=== PATIENT | female | born 1960 | race Caucasian/White ===

== ENCOUNTER 2016-07-21 01:29 | Emergency (ER) | payer MEDICAID ==
[2013-04-15 01:16] VITALS: BMI 25.0
[~2016-07-21 01:29] MED LIST: ATENOLOL25 MG NG; BAYER CHEWABLE81 MG PO; KLONOPIN1 MG PO; NORCO 10/325 TA1 TA1 PO; PLAVIX75 MG PO
[2016-07-21 02:05] LABS: HEMATOCRIT 39.7 % (36.0-48.0); HEMOGLOBIN 13.5 g/dL (12-16); LYMPHOCYTES 10.1 % (15-50); MCV 91.3 fL (80.0-100.0); MEAN PLATELET VOLUME 11.5 fL (7.4-10.4); NEUTROPHILS 87.1 % (40-80); PLATELET COUNT 142 10x3/uL (130-400); RBC 4.35 10x6/uL (4.00-5.40); RDW 12.4 % (11.5-14.5); WBC 7.2 10x3/uL (4.8-10.8)
[2016-07-21 02:16] LABS: ALBUMIN 4.3 g/dL (3.4-5.0); ANION GAP 14.7 mmol/L (8-16); BILIRUBIN - TOTAL 0.71 mg/dL (0.2-1.3); CALCIUM 9.4 mg/dL (8.5-10.1); CARBON DIOXIDE 26.2 mmol/L (21.0-32.0); CREATININE - SERUM 0.9 mg/dL (0.6-1.3); POTASSIUM - SERUM 3.9 mmol/L (3.5-5.1); PROTEIN - SERUM 7.9 g/dL (6.4-8.2)
== END 2016-07-21 04:58 | disposition home or self-care (01) ==
LOC: D.ER 01:29
PROVIDERS: Emergency Medicine
DX: K52.9 Noninfective gastroenteritis and colitis, unspecified (principal); F41.9 Anxiety disorder, unspecified; E78.5 Hyperlipidemia, unspecified

== ENCOUNTER 2016-11-14 14:42 | Emergency (ER) | payer MEDICAID ==
[2013-04-15 01:16] VITALS: BMI 25.0
== END 2016-11-14 15:34 | disposition home or self-care (01) ==
LOC: D.ER 14:42
DX: J01.90 Acute sinusitis, unspecified (principal); F41.9 Anxiety disorder, unspecified

== ENCOUNTER 2017-10-26 12:11 | Emergency (ER) | payer MEDICAID ==
[~2017-10-26] VITALS: Ht 165.1 cm; Wt 70.5 kg
[2017-10-26 12:30] VITALS: Ht 165.1 cm; Wt 70.5 kg
[2017-10-26] MEDS ORDERED: PROTONIX40 MG PO (12:33)
[2017-10-26] MEDS ORDERED: LIPITOR80 MG PO (12:34)
[2017-10-26] MEDS ORDERED: ENDOCET 10-3251 TAB (12:34)
[2017-10-26] MEDS ORDERED: LOPRESSOR25 MG PO (12:34)
[2017-10-26] MEDS ORDERED: CLARITIN 10 MG10 MG PO (12:34)
[2017-10-26 13:01] LABS: BASOPHILS 1.2 % (0-2); EOSINOPHILS 0 % (0-7); HEMATOCRIT 41.6 % (36.0-48.0); HEMOGLOBIN 14.2 g/dL (12-16); IMMATURE GRANULOCYTES 0.3 % (0-5); LYMPHOCYTES 17.9 % (15-50); MCH 32.1 pg (26.0-34.0); MCHC 34.1 g/dL (31.0-37.0); MCV 93.9 fL (80.0-100.0); MEAN PLATELET VOLUME 11.8 fL (7.4-10.4); MONOCYTES 10.4 % (2-11); NEUTROPHILS 70.2 % (40-80); RBC 4.43 10x6/uL (4.00-5.40); RDW 12.4 % (11.5-14.5); WBC 3.4 10x3/uL (4.8-10.8)
[2017-10-26 13:12] LABS: PLATELET COUNT 57 10x3/uL (130-400)
[2017-10-26 13:18] LABS: ALBUMIN 3.4 g/dL (3.4-5.0); ANION GAP 13.8 mmol/L (8-16); CARBON DIOXIDE 24.6 mmol/L (21.0-32.0); CREATININE - SERUM 0.9 mg/dL (0.6-1.3); POTASSIUM - SERUM 3.4 mmol/L (3.5-5.1); PROTEIN - SERUM 7.4 g/dL (6.4-8.2)
[2017-10-26 14:40] LABS: PLATELET ESTIMATE DECREASED
[2017-10-26] MEDS ORDERED: TORADOL10 MG PO (15:42)
[2017-10-26 16:11] LABS: APPEARANCE CLEAR (CLEAR); BILIRUBIN NEGATIVE (NEGATIVE); COLOR YELLOW (YELLOW); GLUCOSE NEGATIVE (NEGATIVE); KETONE NEGATIVE (NEGATIVE); NITRITE NEGATIVE (NEGATIVE); PROTEIN NEGATIVE (NEGATIVE); UROBILINOGEN NORMAL (NORMAL)
[2017-10-26 16:15] LABS: BACTERIA FEW /hpf (NONE SEEN); EPITHELIAL CELLS OCC /hpf (0-5); WHITE CELLS - URINE 0-5 /hpf (0-5)
[2017-10-26] MEDS ORDERED: VENTOLIN HFA18 GM INH (17:15)
[2017-10-26] MEDS ORDERED: TYLENOL W/CODEI1 TAB PO (17:15)
[2017-10-26] MEDS ORDERED: VIBRAMYCIN 100100 MG PO (17:15)
[2017-10-26 17:34] VITALS: BP 145/95
[2017-10-30 03:11] LABS: RMSF IGM 0.49 index (0.00-0.89)
[2017-11-03 16:17] LABS: EHRLICHIA CHAFF IGG Negative (Neg:<1:64); EHRLICHIA CHAFF IGM Negative (Neg:<1:20); HGE IGG TITER Negative (Neg:<1:64); HGE IGM TITER Negative (Neg:<1:20)
== END 2017-10-26 17:35 | disposition home or self-care (01) ==
LOC: D.ER 12:11
PROVIDERS: Family Medicine
DX: R51 Headache (principal); M79.1 Myalgia; R05 Cough; S20.469A Insect bite (nonvenomous) of unspecified back wall of thorax, initial encounter; W57.XXXA Bitten or stung by nonvenomous insect and other nonvenomous arthropods, initial encounter; Y93.89 Activity, other specified; Y92.89 Other specified places as the place of occurrence of the external cause; K21.9 Gastro-esophageal reflux disease without esophagitis; R53.83 Other fatigue

== ENCOUNTER 2018-01-01 13:57 | Emergency (ER) | payer MEDICAID ==
[~2018-01-01] VITALS: Ht 165.1 cm; Wt 72.7 kg
[~2018-01-01 13:57] MED LIST changes: +CLARITIN 10 MG10 MG PO; +ENDOCET 10-3251 TAB; +LIPITOR80 MG PO; +LOPRESSOR25 MG PO; +PROTONIX40 MG PO; +TORADOL10 MG PO; +TYLENOL W/CODEI1 TAB PO; +VENTOLIN HFA18 GM INH; +VIBRAMYCIN 100100 MG PO
[2018-01-01 14:22] VITALS: Ht 165.1 cm; Wt 72.7 kg
[2018-01-01] MEDS ORDERED: DOXYCYCLINE HY100 M2 PO (18:00)
[2018-01-01 18:16] VITALS: BP 138/95
== END 2018-01-01 18:18 | disposition home or self-care (01) ==
LOC: D.ER 13:57
DX: J06.9 Acute upper respiratory infection, unspecified (principal); J02.9 Acute pharyngitis, unspecified

== ENCOUNTER 2018-02-19 09:04 | Inpatient (IN) | payer MEDICAID ==
[~2018-02-19] VITALS: Ht 165.1 cm; Wt 72.7 kg
--- NOTE | ~2018-02-19 | MORECARE ---
CASE MANAGEMENT DISCHARGE SUMMARY PATIENT: KARL GARCIA UNIT: [id number] ADM DATE: 02/19/18 AGE: 57 : 56 SEX: F ROOM/BED: D.1211 AUTHOR: DELL HANCOCK PHYSICIAN: REFERRING PHYSICIAN: FELIPA SOL MD DATE OF SERVICE: 02/19/18 Discharge Plan Patient Name: KARL GARCIA Facility: [facility]:[place] : 1960 Planned Disposition: Home Anticipated Discharge Date: 02/21/18 Discharge Date: Expected LOS: 2 Initial Reviewer: [email or web address] Initial Review Date: 02/19/2018 Generated: 02/19/18 3:41 pm DCPIA - Discharge Planning Initial Assessment Updated by [email or web address]: Kristin Ponce on 02/19/18 2:41 pm * Is the patient Alert and Oriented? Yes * How many steps to enter\exit or inside your home? Three * PCP Medicaid Clinic - No provider at the clinic now. * Pharmacy [facility] on [address] * Preadmission Environment Home Alone * ADLs Independent * Equipment Cane * List name and contact numbers for known caregivers / representatives who currently or will assist patient after discharge: Sandrine Ahn [facility] [phone] * Community resources currently utilized None * Additional services required to return to the preadmission environment? No * Can the patient safely return to the preadmission environment? Yes * Has this patient been hospitalized within the prior 30 days at any hospital? No Patient Name: KARL GARCIA Page 45937 at 1442 All edits/amendments must be made on the electronic document DICTATION DATE: 02/19/18 1441 PATIENT ACCESS: GENEVA 02/19/18 1441 RPT#: [id number] DC DATE: STATUS: ADM IN [facility] [address] [place] [address] END OF REPORT
--- NOTE | ~2018-02-19 | MORECARE ---
CASE MANAGEMENT DISCHARGE SUMMARY PATIENT: KARL GARCIA UNIT: [id number] ADM DATE: 02/19/18 AGE: 57 : 56 SEX: F ROOM/BED: D.1211 AUTHOR: SANTIDOC PHYSICIAN: REFERRING PHYSICIAN: FELIPA SOL MD DATE OF SERVICE: 02/22/18 Discharge Plan Patient Name: KARL GARCIA Facility: [facility]:[place] : 1960 Planned Disposition: Home Anticipated Discharge Date: 02/21/18 Discharge Date: 02/21/2018 Expected LOS: 2 Initial Reviewer: [email or web address] Initial Review Date: 02/19/2018 Generated: 02/22/18 10:23 am DCP- Discharge Planning Updated by [email or web address]: Kristin Ponce on 02/19/18 1:[address] Patient Name: KARL GARCIA Admission Status: ER Accout number: [id number] Admission Date: 02-19-2018 : 1960 Admission Diagnosis: Attending: FELIPA SOL Current LOS: 1 Anticipated DC Date: 02-21-2018 Planned Disposition: Home Primary Insurance: MEDICAID [place] Discharge Planning Comments: CM met with patient to complete initial dc planning assessment. CM educated patient on the CM role and verbal consent given by patient to complete assessment. Patient lives at home alone. She reports she is independent in her care at home. At discharge patient plans to return home alone and feels this is a safe discharge. Patient denied known discharge needs at this time. CM will continue to follow and will assist as needed with dc plans/needs. See below for more assessment information. Is the patient Alert and Oriented? Yes * How many steps to enter\exit or inside your home? Three * PCP Medicaid Clinic - No provider at the clinic now. * Pharmacy [facility] on [address] * Preadmission Environment Home Alone * ADLs Independent * Equipment Cane * List name and contact numbers for known caregivers / representatives who currently or will assist patient after discharge: Sandrine Ahn - [place] - [phone] * Community resources currently utilized None * Additional services required to return to the preadmission environment? No * Can the patient safely return to the preadmission environment? Yes * Has this patient been hospitalized within the prior 30 days at any hospital? No Benefits Manager: Kristin Ponce DCPIA - Discharge Planning Initial Assessment Updated by [email or web address]: Kristin Ponce on 02/19/18 2:41 pm * Is the patient Alert and Oriented? Yes * How many steps to enter\exit or inside your home? Three * PCP Medicaid Clinic - No provider at the clinic now. * Pharmacy [facility] on [address] * Preadmission Environment Home Alone * ADLs Independent * Equipment Cane * List name and contact numbers for known caregivers / representatives who currently or will assist patient after discharge: Sandrine Ahn [facility] - [phone] * Community resources currently utilized None * Additional services required to return to the preadmission environment? No * Can the patient safely return to the preadmission environment? Yes * Has this patient been hospitalized within the prior 30 days at any hospital? No Last DP export: 02/19/18 1:51 Patient Name: KARL GRACIA Page 24250 at 0923 All edits/amendments must be made on the electronic document DICTATION DATE: 02/22/18922 SKIVER MACHINE: GENEVA 02/22/18922 RPT#: [id number] DC DATE:02/21/18 STATUS: DIS IN [facility] [address] [place] [address] END OF REPORT
--- NOTE | ~2018-02-19 | MORECARE ---
CASE MANAGEMENT DISCHARGE SUMMARY PATIENT: KARL GARCIA UNIT: [id number] ADM DATE: 02/19/18 AGE: 57 : 56 SEX: F ROOM/BED: D.1211 AUTHOR: SANTI,DOC PHYSICIAN: REFERRING PHYSICIAN: FELIPA SOL MD DATE OF SERVICE: 02/19/18 Discharge Plan Patient Name: KARL GARCIA Facility: [facility]:[place] : 1960 Planned Disposition: Home Anticipated Discharge Date: 02/21/18 Discharge Date: Expected LOS: 2 Initial Reviewer: [email or web address] Initial Review Date: 02/19/2018 Generated: 02/19/18 3:51 pm DCP- Discharge Planning Updated by [email or web address]: Kristin Ponce on 02/19/18 1:[address] Patient Name: KARL GARCIA Admission Status: ER Accout number: [id number] Admission Date: 02-19-2018 : 1960 Admission Diagnosis: Attending: FELIPA SOL Current LOS: 1 Anticipated DC Date: 02-21-2018 Planned Disposition: Home Primary Insurance: MEDICAID [place] Discharge Planning Comments: CM met with patient to complete initial dc planning assessment. CM educated patient on the CM role and verbal consent given by patient to complete assessment. Patient lives at home alone. She reports she is independent in her care at home. At discharge patient plans to return home alone and feels this is a safe discharge. Patient denied known discharge needs at this time. CM will continue to follow and will assist as needed with dc plans/needs. See below for more assessment information. Is the patient Alert and Oriented? Yes * How many steps to enter\exit or inside your home? Three * PCP Medicaid Clinic - No provider at the clinic now. * Pharmacy [facility] on [address] * Preadmission Environment Home Alone * ADLs Independent * Equipment Cane * List name and contact numbers for known caregivers / representatives who currently or will assist patient after discharge: Sandrine Ahn - [employer] - [phone] * Community resources currently utilized None * Additional services required to return to the preadmission environment? No * Can the patient safely return to the preadmission environment? Yes * Has this patient been hospitalized within the prior 30 days at any hospital? No [employer] Offbearer: Kristin Ponce DCPIA - Discharge Planning Initial Assessment Updated by [email or web address]: Kristin Ponce on 02/19/18 2:41 pm * Is the patient Alert and Oriented? Yes * How many steps to enter\exit or inside your home? Three * PCP Medicaid Clinic - No provider at the clinic now. * Pharmacy [facility] on [address] * Preadmission Environment Home Alone * ADLs Independent * Equipment Cane * List name and contact numbers for known caregivers / representatives who currently or will assist patient after discharge: Sandrine Ahn - [employer] - [phone] * Community resources currently utilized None * Additional services required to return to the preadmission environment? No * Can the patient safely return to the preadmission environment? Yes * Has this patient been hospitalized within the prior 30 days at any hospital? No Last DP export: 02/19/18 1:41 Patient Name: KARL GARCIA Page [id number] at 1451 All edits/amendments must be made on the electronic document DICTATION DATE: 02/19/181450 ELECTRONICS ENGINEERING TECHNOLOGIST: GENEVA 02/19/181450 RPT#: [id number] GA DATE: STATUS: ADM IN [facility] [address] [place] [address] END OF REPORT
[~2018-02-19 09:04] MED LIST changes: +DOXYCYCLINE HY100 M2 PO
[2018-02-19] MEDS ORDERED: COREG 3.1253.125 MG PO (09:14)
[2018-02-19] MEDS ORDERED: VALIUM5 MG PO (09:15)
[2018-02-19 09:41] LABS: BASOPHILS 0.4 % (0-2); EOSINOPHILS 1.9 % (0-7); HEMATOCRIT 39.5 % (36.0-48.0); IMMATURE GRANULOCYTES 0.8 % (0-5); MCH 31.6 pg (26.0-34.0); MCHC 32.9 g/dL (31.0-37.0); MCV 95.9 fL (80.0-100.0); MEAN PLATELET VOLUME 12.1 fL (7.4-10.4); MONOCYTES 13.2 % (2-11); NEUTROPHILS 42.7 % (40-80); RBC 4.12 10x6/uL (4.00-5.40); RDW 12.7 % (11.5-14.5); WBC 7.4 10x3/uL (4.8-10.8)
[2018-02-19 09:47] LABS: PLATELET COUNT 155 10x3/uL (130-400)
[2018-02-19 09:50] LABS: ALBUMIN 3.7 g/dL (3.4-5.0); ALKALINE PHOSPHATASE 84 U/L (46-116); ALT (SGPT) 21 U/L (10-68); BILIRUBIN - TOTAL 0.31 mg/dL (0.2-1.3); CALC OSMOLALITY 281 mosm/kg (275-300); CHLORIDE - SERUM 105 mmol/L (98-107); CREATININE - SERUM 0.8 mg/dL (0.6-1.3); POTASSIUM - SERUM 4.3 mmol/L (3.5-5.1); PROTEIN - SERUM 7.1 g/dL (6.4-8.2); SODIUM 140 mmol/L (136-145); UREA NITROGEN 20 mg/dL (7-18); eGFR NON AFRICAN AMERICAN 78 mL/min (90-120)
[2018-02-19 09:53] LABS: APTT 22.1 SECONDS (22.8-39.4); INR 0.88 (0.85-1.17); PROTIME 11.6 SECONDS (11.6-15.0)
[2018-02-19 09:56] LABS: GLUCOSE 91 mg/dL (74-106)
[2018-02-19 09:58] LABS: PRO BNP 46 pg/mL (0-125)
[2018-02-19 10:00] LABS: TROPONIN-I < 0.017 ng/mL (0.000-0.060)
[2018-02-19 14:13] VITALS: BP 195/93; BMI 26.6
[2018-02-19 14:59] VITALS: Ht 165.1 cm; Wt 72.7 kg
[2018-02-19 16:02] LABS: APPEARANCE CLEAR (CLEAR); BILIRUBIN NEGATIVE (NEGATIVE); COLOR STRAW (YELLOW); GLUCOSE 1000 mg/dL (NEGATIVE); KETONE NEGATIVE (NEGATIVE); NITRITE NEGATIVE (NEGATIVE); PROTEIN NEGATIVE (NEGATIVE); UROBILINOGEN NORMAL (NORMAL)
[2018-02-19 20:06] VITALS: BP 151/99
[2018-02-20 00:37] VITALS: BP 140/111
[2018-02-20 04:00] VITALS: BP 170/100
[2018-02-20 06:26] LABS: BASOPHILS 0 % (0-2); EOSINOPHILS 0 % (0-7); HEMATOCRIT 38.9 % (36.0-48.0); HEMOGLOBIN 13.2 g/dL (12-16); IMMATURE GRANULOCYTES 0.6 % (0-5); LYMPHOCYTES 12.5 % (15-50); MCH 31.2 pg (26.0-34.0); MCHC 33.9 g/dL (31.0-37.0); MEAN PLATELET VOLUME 12.4 fL (7.4-10.4); MONOCYTES 1.4 % (2-11); NEUTROPHILS 85.5 % (40-80); PLATELET COUNT 153 10x3/uL (130-400); RBC 4.23 10x6/uL (4.00-5.40); RDW 12.8 % (11.5-14.5)
[2018-02-20 06:31] LABS: WBC 13.3 10x3/uL (4.8-10.8)
[2018-02-20 06:48] LABS: ALBUMIN 3.7 g/dL (3.4-5.0); ALKALINE PHOSPHATASE 80 U/L (46-116); ALT (SGPT) 20 U/L (10-68); BILIRUBIN - TOTAL 0.34 mg/dL (0.2-1.3); CALCIUM 9.1 mg/dL (8.5-10.1); CHLORIDE - SERUM 104 mmol/L (98-107); CREATININE - SERUM 0.7 mg/dL (0.6-1.3); PROTEIN - SERUM 7.5 g/dL (6.4-8.2); SODIUM 140 mmol/L (136-145); UREA NITROGEN 15 mg/dL (7-18); eGFR NON AFRICAN AMERICAN > 90 mL/min (90-120)
[2018-02-20 06:49] LABS: CALC OSMOLALITY 284 mosm/kg (275-300); CARBON DIOXIDE 21.1 mmol/L (21.0-32.0); GLUCOSE 182 mg/dL (74-106); POTASSIUM - SERUM 3.6 mmol/L (3.5-5.1)
[2018-02-20 08:15] VITALS: BP 160/93
[2018-02-20 12:18] VITALS: BP 112/72
[2018-02-20 14:50] VITALS: BP 130/96
[2018-02-20 20:33] VITALS: BP 142/90
[2018-02-21 00:04] VITALS: BP 110/62
[2018-02-21 06:59] VITALS: BP 124/78
[2018-02-21 08:00] VITALS: BP 132/89
[2018-02-21 12:00] VITALS: BP 148/87
[2018-02-21] MEDS ORDERED: FLUTICASONE PRO16 GM NASAL (14:15)
[2018-02-21] MEDS ORDERED: ZITHROMAX500 MG PO (14:15)
[2018-02-25 03:13] LABS: IMMUNOGLOBULIN E 115 IU/mL (0-100)
== END 2018-02-21 15:28 | disposition home or self-care (01) | DRG 190 ==
LOC: D.ER 09:04 → D.EDHOLD 11:38 → D.M3 11:38
PROVIDERS: Family Medicine; Internal Medicine Nephrology; Internal Medicine Pulmonary Disease
DX: J43.9 Emphysema, unspecified (principal); J18.9 Pneumonia, unspecified organism; J98.11 Atelectasis; N17.9 Acute kidney failure, unspecified; J20.9 Acute bronchitis, unspecified; I10 Essential (primary) hypertension; E78.5 Hyperlipidemia, unspecified; I25.10 Atherosclerotic heart disease of native coronary artery without angina pectoris; F41.9 Anxiety disorder, unspecified; K21.9 Gastro-esophageal reflux disease without esophagitis; F10.10 Alcohol abuse, uncomplicated; J30.9 Allergic rhinitis, unspecified; Z95.5 Presence of coronary angioplasty implant and graft; Z87.891 Personal history of nicotine dependence

== ENCOUNTER → 2018-05-19 07:42 | Outpatient (CLI) | payer MEDICAID ==
[2018-02-19 14:59] VITALS: BMI 26.6
[~2018-05-19 07:42] MED LIST changes: +COREG 3.1253.125 MG PO; +FLUTICASONE PRO16 GM NASAL; +VALIUM5 MG PO; +ZITHROMAX500 MG PO
== END | disposition home or self-care (01) ==
LOC: D.RAD 07:42 → D.US 08:30 → D.NM 09:00
DX: R10.11 Right upper quadrant pain (principal); R14.0 Abdominal distension (gaseous); K59.00 Constipation, unspecified

== ENCOUNTER 2018-10-21 12:40 | Emergency (ER) | payer MEDICAID ==
[~2018-10-21] VITALS: Ht 165.1 cm; Wt 72.7 kg
[2018-10-21 12:59] VITALS: BP 110/89; Ht 165.1 cm; Wt 72.7 kg
[2018-10-21] MEDS ORDERED: MIRALAX17 GM PO (13:02)
[2018-10-21 14:56] LABS: BASOPHILS 0.5 % (0-2); EOSINOPHILS 2.7 % (0-7); HEMATOCRIT 36.1 % (36.0-48.0); HEMOGLOBIN 11.7 g/dL (12-16); IMMATURE GRANULOCYTES 0.4 % (0-5); LYMPHOCYTES 43.9 % (15-50); MCHC 32.4 g/dL (31.0-37.0); MCV 92.6 fL (80.0-100.0); MEAN PLATELET VOLUME 12.2 fL (7.4-10.4); MONOCYTES 10.8 % (2-11); NEUTROPHILS 41.7 % (40-80); PLATELET COUNT 158 10x3/uL (130-400); RDW 13.3 % (11.5-14.5); WBC 5.5 10x3/uL (4.8-10.8)
[2018-10-21 15:11] LABS: ALBUMIN 3.4 g/dL (3.4-5.0); ANION GAP 10.4 mmol/L (8-16); BILIRUBIN - TOTAL 0.19 mg/dL (0.2-1.3); CALCIUM 8.4 mg/dL (8.5-10.1); CARBON DIOXIDE 27.9 mmol/L (21.0-32.0); CREATININE - SERUM 0.9 mg/dL (0.6-1.3); POTASSIUM - SERUM 4.3 mmol/L (3.5-5.1); PROTEIN - SERUM 6.9 g/dL (6.4-8.2)
[2018-10-21 15:21] LABS: APPEARANCE HAZY (CLEAR); BILIRUBIN NEGATIVE (NEGATIVE); COLOR YELLOW (YELLOW); GLUCOSE NEGATIVE (NEGATIVE); KETONE NEGATIVE (NEGATIVE); NITRITE NEGATIVE (NEGATIVE); PROTEIN NEGATIVE (NEGATIVE); UROBILINOGEN NORMAL (NORMAL)
[2018-10-21 15:22] LABS: BACTERIA FEW /hpf (NONE SEEN); EPITHELIAL CELLS 0-5 /hpf (0-5); RED CELLS - URINE 0-5 /hpf (0-5)
[2018-10-21] MEDS ORDERED: DIFLUCAN150 MG PO (15:50)
[2018-10-21] MEDS ORDERED: MACROBID100 MG PO (15:50)
== END 2018-10-21 16:07 | disposition home or self-care (01) ==
LOC: D.ER 12:40
PROVIDERS: Family Medicine
DX: M79.605 Pain in left leg (principal); M79.604 Pain in right leg; B37.9 Candidiasis, unspecified; N39.0 Urinary tract infection, site not specified

== ENCOUNTER 2019-04-29 15:46 | Emergency (ER) | payer MEDICAID ==
[~2019-04-29] VITALS: Ht 165.1 cm; Wt 70.5 kg
[~2019-04-29 15:46] MED LIST changes: +DIFLUCAN150 MG PO; +MACROBID100 MG PO; +MIRALAX17 GM PO
[2019-04-29 15:49] VITALS: Ht 165.1 cm; Wt 70.5 kg
[2019-04-29 16:25] LABS: BASOPHILS 0.2 % (0-2); EOSINOPHILS 0.2 % (0-7); HEMATOCRIT 40.8 % (36.0-48.0); HEMOGLOBIN 13.6 g/dL (12-16); IMMATURE GRANULOCYTES 0.2 % (0-5); LYMPHOCYTES 19.3 % (15-50); MCH 31.6 pg (26.0-34.0); MCHC 33.3 g/dL (31.0-37.0); MCV 94.7 fL (80.0-100.0); MEAN PLATELET VOLUME 11.7 fL (7.4-10.4); MONOCYTES 10.4 % (2-11); NEUTROPHILS 69.7 % (40-80); PLATELET COUNT 182 10x3/uL (130-400); RBC 4.31 10x6/uL (4.00-5.40); RDW 12.7 % (11.5-14.5); WBC 9.4 10x3/uL (4.8-10.8)
[2019-04-29 16:28] LABS: UDS - AMPHET POSITIVE QUAL (NEGATIVE); UDS - BARB NEGATIVE QUAL (NEGATIVE); UDS - BENZO POSITIVE QUAL (NEGATIVE); UDS - COCAINE NEGATIVE QUAL (NEGATIVE); UDS - OPIATE NEGATIVE QUAL (NEGATIVE); UDS - PCP NEGATIVE QUAL (NEGATIVE); UDS - THC POSITIVE QUAL (NEGATIVE)
[2019-04-29 16:38] LABS: APPEARANCE CLEAR (CLEAR); BILIRUBIN NEGATIVE (NEGATIVE); COLOR YELLOW (YELLOW); GLUCOSE NEGATIVE (NEGATIVE); KETONE MODERATE mg/dL (NEGATIVE); NITRITE NEGATIVE (NEGATIVE); PROTEIN NEGATIVE (NEGATIVE); SPECIFIC GRAVITY 1.025 (1.005-1.020); UROBILINOGEN NORMAL (NORMAL)
[2019-04-29 16:39] LABS: ANION GAP 18.2 mmol/L (8-16); CALCIUM 9.3 mg/dL (8.5-10.1); CARBON DIOXIDE 23.2 mmol/L (21.0-32.0); POTASSIUM - SERUM 3.4 mmol/L (3.5-5.1)
[2019-04-29 16:46] LABS: ALBUMIN 4.1 g/dL (3.4-5.0); BILIRUBIN - TOTAL 0.78 mg/dL (0.2-1.3); PROTEIN - SERUM 7.6 g/dL (6.4-8.2)
[2019-04-29 17:43] VITALS: BP 184/105
== END 2019-04-29 18:20 | disposition home or self-care (01) ==
LOC: D.ER 15:46
PROVIDERS: Family Medicine
DX: F15.10 Other stimulant abuse, uncomplicated (principal); R33.9 Retention of urine, unspecified; I25.10 Atherosclerotic heart disease of native coronary artery without angina pectoris